=== PATIENT | female | born 1990 | race Caucasian/White ===

== ENCOUNTER 2020-05-13 06:00 | Inpatient (IN) | payer BC ==
[2020-05-13] MEDS ORDERED: TERBUTALINE 1 MG/ML VIAL SQ PRN (06:20)
[2020-05-13] MEDS ORDERED: LIDOCAINE 0.5% (PF) 5 MG/ML (50 ML SDV) SQ PRN (06:20)
[2020-05-13] MEDS ORDERED: OXYTOCIN 10 UNIT/ML 1 ML VIAL IM PRN (06:20)
[2020-05-13] MEDS ORDERED: CARBOPROST TROMETHAMINE 250 MCG/ML 1 ML AMP IM PRN (06:20)
[2020-05-13] MEDS ORDERED: METHYLERGONOVINE 0.2 MG/ML 1 ML AMP IM PRN (06:20)
[2020-05-13] MEDS ORDERED: LACTATED RINGERS 1,000 ML IV SCH (06:30)
[2020-05-13] MEDS ORDERED: OXYTOCIN 30 UNITS/500 ML NS 30 UNIT in SALINE 1 500ML.BAG IV SCH (06:30)
[2020-05-13 07:26] LABS: Anisocytosis Slight; Basophils % (A) 0 %; Eosinophils # (A) 0.1 k/uL (0-0.7); Eosinophils % (A) 1 %; HGB 12.9 gm/dL (11.4-16.0); Lymphocytes # (A) 1.8 k/uL (1.0-4.8); Lymphocytes % (A) 19 %; MCH 32.9 pg (25.0-35.0); MCHC 33.9 g/dL (31.0-37.0); Macrocytosis Slight; Mean Platelet Volume 8.8; Monocytes # (A) 0.6 k/uL (0-1.0); Monocytes % (A) 6 %; Neutrophils # (A) 6.9 k/uL (1.3-7.7); Neutrophils % (A) 72 %; Platelet Count 168 k/uL (150-450); RBC 3.92 m/uL (3.80-5.40); RDW 16.3 % (11.5-15.5); WBC 9.6 k/uL (3.8-10.6)
[2020-05-13] MEDS ORDERED: BUTORPHANOL 1 MG/ML 1 ML VIAL IV PRN (08:20)
--- NOTE | 2020-05-13 08:20 | P.HPOB ---
History of Present Illness H&P Date: 05/13/20 Chief Complaint: IUP at 39 0/7 weeks This is a 30-year-old that presents for elective induction of labor. Patient states with her prior pregnancies she was always induced postdates, her cervix is noted be favorable on last office visit therefore induction of labor w as offered and she accepted. Patient notes good movement denies contractions or bleeding. She has been receiving routine care which has been essentially uncomplicated. Patient was a transfer of care to myself around 27 weeks, patient had been receiving routine care with another provider. Routine fingerstick hemoglobin was done around 34 weeks, gestational anemia was noted and iron was encouraged. Patient has a known blood type of O-, rubella status immune, RPR nonreactive, hepatitis B surface antigen negative, HIV negative, she did pass her one-hour Glucola with a result of 108, group beta strep cultures were noted to be negative on 04/23. Review of Systems Constitutional: Denies chills, Denies fatigue, Denies fever Ears, nose, mouth and throat: Denies headache Cardiovascular: Reports leg edema Respiratory: Denies dyspnea Gastrointestinal: Reports nausea, Denies constipation, Denies diarrhea, Denies vomiting Genitourinary: Reports Past Medical History Past Medical History: No Reported History History of Any Multi-Drug Resistant Organisms: None Reported Past Surgical History: Orthopedic Surgery Past Anesthesia/Blood Transfusion Reactions: No Reported Reaction Past Psychological History: Anxiety Smoking Status: Former smoker Past Alcohol Use History: Occasional Past Drug Use History: None Reported - Past Family History Father Family Medical History: No Reported History Medications and Allergies Home Medications Medication Instructions Recorded Confirmed Type Pnv No.95/Ferrous Fum/Folic AC 1 tab PO DAILY 05/13/20 05/13/20 History [ Multivitamin Tablet] Allergies Allergy/AdvReac Type Severity Reaction Status Date / Time penicillin G Allergy Rash/Hives Verified 05/13/20 06:18 Exam Osteopathic Statement: *. No significant issues noted on an osteopathic structural exam other than those noted in the History and Physical/Consult. Vital Signs Temp Pulse Resp BP 05/13/20 07:20 96.4 F L 75 16 99/58 Intake and Output 05/12/20 05/13/20 05/13/20 22:59 06:59 14:59 Other: Weight 77.111 kg 77.111 kg Targeted physical exam was performed and the state in general this is a well-nourished well-developed female in no acute distress, breathing is noted to be nonlabored, heart has regular rate and rhythm, abdomen is gravid and appropriate for gestational age, on cervical exam she is noted to be 3/50/-2 amniotomy is performed and clear fluid was obtained. category 1 heart tones are noted, she is edilson irregularly. Results Result Diagrams: 05/13/20 06:15 Abnormal Lab Results - Last 24 Hours (Table) 05/13/20 Range/Units 06:15 RDW 16.3 H (11.5-15.5) % Assessment and Plan (1) Term Current Visit: Yes Status: Acute Code(s): Z34.90 - ENCNTR FOR SUPRVSN OF NORMAL , UNSP, UNSP TRIMESTER SNOMED Code(s): 03209643 Plan: This 30-year-old 012 at 39-0/7 weeks presents to labor and delivery for elective induction of labor. Patient has a history of 2 prior spontaneous vaginal deliveries all induced. Patient is admitted to labor and delivery and Pitocin induction of labor is begun per hospital protocol. Amniotomy was performed and clear fluid was obtained. Patient is offered Stadol versus ep idural for pain management throughout labor. Patient will consider. Anticipate spontaneous vaginal delivery later today.
[2020-05-13] MEDS ORDERED: PRENATAL VIT-IRON-FOLIC ACID 1 EACH CAP PO SCH (09:00)
[2020-05-13] MEDS ORDERED: fentaNYL (PF) 50 MCG/ML 5 ML AMP ONE (12:00)
[2020-05-13] MEDS ORDERED: SODIUM CHLORIDE 0.9% 100 ML BAG ONE (12:00)
[2020-05-13] MEDS ORDERED: ROPIVACAINE 5MG/ML 20ML VIAL ONE (12:00)
[2020-05-13] MEDS ORDERED: ZOLPIDEM 5 MG TAB PO PRN (14:13)
[2020-05-13] MEDS ORDERED: HYDROcodone/APAP 5-325MG 1 EACH TAB PO PRN (14:13)
[2020-05-13] MEDS ORDERED: diphenhydrAMINE 50 MG/ML 1 ML VIAL IVP PRN ×2 (14:13)
[2020-05-13] MEDS ORDERED: LANOLIN CREAM 5 GM TUBE TOPICAL PRN (14:13)
[2020-05-13] MEDS ORDERED: diphenhydrAMINE 25 MG CAP PO PRN (14:13)
[2020-05-13] MEDS ORDERED: WITCH HAZEL 1 EACH MED..PAD TOPICAL PRN (14:13)
[2020-05-13] MEDS ORDERED: SIMETHICONE 80 MG CHEWABLE PO PRN (14:13)
[2020-05-13] MEDS ORDERED: ACETAMINOPHEN TAB 325 MG TAB PO PRN (14:13)
[2020-05-13] MEDS ORDERED: diphenhydrAMINE 50 MG CAP PO PRN (14:13)
[2020-05-13] MEDS ORDERED: IBUPROFEN 600 MG TAB PO PRN (14:13)
[2020-05-13] MEDS ORDERED: BENZOCAINE/MENTHOL SPRAY 1 GM/SPRAY AEROSOL TOPICAL PRN (14:13)
[2020-05-13] MEDS ORDERED: HYDROCORTISONE 2.5% RECTAL CREAM 30 GM TUBE RECTAL PRN (14:13)
--- NOTE | 2020-05-13 14:13 | P.PROBDLV ---
Vaginal Delivery Note - . Vaginal Delivery Note: this pleasant 30-year-old 4 para 2011 at 39 0/7 weeks presents to labor and delivery for elective induction of labor. Patient was admitted to labor and delivery and Pitocin induction of labor was begun per hospital protocol. Patient underwent amniotomy once regular contractions were noted. Clear amniotic fluid was noted upon rupture of membranes. Patient progressed through labor eventually becoming uncomfortable and requesting epidural placement epidural was placed with anesthesia Department without difficulty. Patient progressed to complete began pushing and had a normal spontaneous vaginal delivery with a compound left hand at 1358, weight of 7 lbs. 0 oz. and Apgars of 8 and 9 at one and 5 minutes respectfully. After two-minute delayed the umbo cord was doubly clamped and cut and the was handed off to the maternal abdomen. The placenta was then delivered spontaneously intact with a three- vessel cord being noted. Prior to this cord blood was taken. On inspection the patient's vaginal vault no lacerations were noted. The bladder was then drained for approximately 50 mL of clear yellow urine. The uterus is noted to be firm and below the umbo like is at this time. Estimated blood loss was noted to be 200 mL. Patient and infant tolerated delivery well and are resting comfortably. All counts were noted be correct 2.
[2020-05-13] MEDS ORDERED: OXYTOCIN 20 UNITS/1000 ML NS 1,000 ML IV SCH (14:15)
[2020-05-13] MEDS ORDERED: SENNOSIDES-DOCUSATE SODIUM 1 EACH TAB PO SCH (20:00)
[2020-05-14 06:50] LABS: Anisocytosis Slight; Basophils % (A) 0 %; Eosinophils # (A) 0.1 k/uL (0-0.7); Eosinophils % (A) 1 %; HCT 34.3 % (34.0-46.0); HGB 11.8 gm/dL (11.4-16.0); Lymphocytes # (A) 2.3 k/uL (1.0-4.8); Lymphocytes % (A) 17 %; MCH 33.2 pg (25.0-35.0); MCHC 34.4 g/dL (31.0-37.0); MCV 96.6 fL (80.0-100.0); Macrocytosis Slight; Mean Platelet Volume 8.8; Monocytes # (A) 0.7 k/uL (0-1.0); Monocytes % (A) 5 %; Neutrophils # (A) 9.9 k/uL (1.3-7.7); Neutrophils % (A) 75 %; Platelet Count 176 k/uL (150-450); RBC 3.55 m/uL (3.80-5.40); RDW 16.4 % (11.5-15.5); WBC 13.2 k/uL (3.8-10.6)
--- NOTE | 2020-05-14 08:38 | P.DS ---
Providers Date of admission: 05/13/20 06:05 Expected date of discharge: 05/14/20 Attending physician: Flavia Sotelo Primary care physician: Stated None - Discharge Diagnosis(es) (1) Term Current Visit: Yes Status: Acute (2) Status post normal vaginal delivery Current Visit: Yes Status: Acute Hospital Course: This is a pleasant 30-year-old 4 para 2011 that presented to labor and delivery at 39-2/7 weeks for elective induction of labor. Patient had been receiving routine care but transfer to [place] at 27 weeks. care is been essentially uncomplicated. Patient was admitted and Pitocin induction of labor was begun. Patient underwent amniotomy once regular contractions were noted and clear fluid was obtained. Patient became uncomfortable and requested epidural placement. Patient progressed to complete began pushing and had a normal spontaneous vaginal delivery of a viable female infant at 1358, weight of 7 lbs. 0 oz. and Apgars of 9 and 9 at one and 5 minutes respect weight. Patient's post course has been essentially uneventful. On this day #1 she is ambulating and voiding without difficulty she is tolerating a regular diet without nausea or vomiting she is bottle feeding. She states her lochia is moderate. She would like discharge home at 24 hours Patient Condition at Discharge: Good Plan - Discharge Summary New Discharge Prescriptions: No Action Pnv No.95/Ferrous Fum/Folic AC [ Multivitamin Tablet] 1 tab PO DAILY Discharge Medication List Pnv No.95/Ferrous Fum/Folic AC [ Multivitamin Tablet] 1 tab PO DAILY 05/13/20 [History] Follow up Appointment(s)/Referral(s): Flavia Sotelo DO [Doctor of Osteopathic Medicine] - 4 Weeks Patient Instructions/Handouts: Vaginal Delivery (DC), Vaginal Delivery (GEN) Discharge Disposition: HOME SELF-CARE
[2020-05-15 09:17] VITALS: BP 118/78; PULSE 82; RESP 16; TEMP 97.4
== END 2020-05-14 14:30 | disposition home or self-care (01) | DRG 807 ==
LOC: 4FBP 06:05
PROVIDERS: ADMIT Obstetrics & Gynecology Obstetrics; ATTEND Obstetrics & Gynecology Obstetrics
PROC: 10E0XZZ Delivery of Products of Conception, External Approach (ICD-10-PCS; principal; 2020-05-13)
PROC: 3E033VJ Introduction of Other Hormone into Peripheral Vein, Percutaneous Approach (ICD-10-PCS; principal; 2020-05-13)
DX: O99.344 Other mental disorders complicating childbirth (principal); Z37.0 Single live birth; F41.9 Anxiety disorder, unspecified; Z3A.39 39 weeks gestation of pregnancy; Z87.891 Personal history of nicotine dependence
CPT/HCPCS: 85025; 86850; 86870; 86880; 86900; 86901

== ENCOUNTER → 2021-07-02 | Outpatient (CLI) | payer BC | END | disposition home or self-care (01) | LOC: LABWHC1 09:54 | PROVIDERS: ATTEND Obstetrics & Gynecology Obstetrics | DX: O20.0 Threatened abortion (principal); Z3A.00 Weeks of gestation of pregnancy not specified | CPT/HCPCS: 36415; 84702 ==

== ENCOUNTER → 2021-07-04 | Outpatient (CLI) | payer BC | END | disposition home or self-care (01) | LOC: LABMAIN 09:55 | PROVIDERS: ATTEND Obstetrics & Gynecology Obstetrics | DX: O20.0 Threatened abortion (principal); Z3A.00 Weeks of gestation of pregnancy not specified | CPT/HCPCS: 36415; 84702 ==

== ENCOUNTER 2022-02-15 06:13 | Inpatient (IN) | payer BC ==
[2022-02-15] MEDS ORDERED: TERBUTALINE 1 MG/ML VIAL SQ PRN (06:31)
[2022-02-15] MEDS ORDERED: CARBOPROST TROMETHAMINE 250 MCG/ML 1 ML AMP IM PRN (06:31)
[2022-02-15] MEDS ORDERED: OXYTOCIN 10 UNIT/ML 1 ML VIAL IM PRN (06:31)
[2022-02-15] MEDS ORDERED: LIDOCAINE 1% (PF) 10 MG/ML (30 ML SDV) SQ PRN (06:31)
[2022-02-15] MEDS ORDERED: METHYLERGONOVINE 0.2 MG/ML 1 ML AMP IM PRN (06:31)
[2022-02-15] MEDS: LACTATED RINGERS 1,000 ML IV SCH ×3 (06:40→12:00)
[2022-02-15] MEDS: OXYTOCIN 30 UNITS/500 ML NS 30 UNIT in SALINE 1 500ML.BAG IV SCH ×2 (06:45→18:48)
[2022-02-15 06:48] LABS: Basophils % (A) 0 %; Eosinophils # (A) 0.1 k/uL (0-0.7); Eosinophils % (A) 1 %; HCT 37.2 % (34.0-46.0); HGB 12.3 gm/dL (11.4-16.0); Lymphocytes % (A) 22 %; MCH 30.8 pg (25.0-35.0); MCHC 32.9 g/dL (31.0-37.0); MCV 93.4 fL (80.0-100.0); Mean Platelet Volume 9.1; Monocytes # (A) 0.6 k/uL (0-1.0); Monocytes % (A) 6 %; Neutrophils # (A) 6.5 k/uL (1.3-7.7); Neutrophils % (A) 69 %; Platelet Count 176 k/uL (150-450); Poikilocytosis Slight; RBC 3.98 m/uL (3.80-5.40); RDW 14.3 % (11.5-15.5); WBC 9.4 k/uL (3.8-10.6)
[2022-02-15] MEDS ORDERED: ROPIVACAINE 100 MG, fentaNYL (PF). 200 MCG in SODIUM CHLORIDE 0.9% 76 ML EPIDURAL ONE (12:57)
[2022-02-15] MEDS ORDERED: diphenhydrAMINE 50 MG/ML 1 ML VIAL IVP PRN ×2 (13:51)
[2022-02-15] MEDS ORDERED: BENZOCAINE/MENTHOL SPRAY 1 GM/SPRAY AEROSOL TOPICAL PRN (13:51)
[2022-02-15] MEDS ORDERED: LANOLIN CREAM 5 GM TUBE TOPICAL PRN (13:51)
[2022-02-15] MEDS ORDERED: diphenhydrAMINE 25 MG CAP PO PRN (13:51)
[2022-02-15] MEDS ORDERED: SIMETHICONE 80 MG CHEWABLE PO PRN (13:51)
[2022-02-15] MEDS ORDERED: ACETAMINOPHEN TAB 325 MG TAB PO PRN (13:51)
[2022-02-15] MEDS ORDERED: HYDROCORTISONE 2.5% RECTAL CREAM 30 GM TUBE RECTAL PRN (13:51)
[2022-02-15] MEDS ORDERED: ZOLPIDEM 5 MG TAB PO PRN (13:51)
[2022-02-15] MEDS ORDERED: diphenhydrAMINE 50 MG CAP PO PRN (13:51)
--- NOTE | 2022-02-15 13:51 | P.PROBDLV ---
Vaginal Delivery Note - . Vaginal Delivery Note: This is a 32-year-old 013 at 39-6/7 weeks that presents to labor and delivery for induction induction of labor. Patient has been receiving routine care which is an essentially uncomplicated. Patient was admitted to labor and delivery and Pitocin induction of labor was begun. Once regular contractions were appreciated amniotomy was performed. Clear fluid was obtained on amniotomy. Patient soon became uncomfortable direct request epidural placement. Anesthesia was notified and epidural was placed without difficulty. Patient progressed quickly to complete began pushing and had a normal spontaneous vaginal delivery of a viable female infant in occiput posterior presentation, at 1338, weight of 7 lbs. 9 oz. After two-minute delayed the umbilical cord was doubly clamped and cut and the was handed to the maternal abdomen. Cord blood was then taken. The placenta was then delivered spontaneously intact with a three-vessel cord being noted. The uterus is noted be firm and below the umbilicus. On section the patient's vaginal vault, 2 small lacerations were appreciated. These were instilled lidocaine and repaired with a [id number] suture of 3-0 Rapide. The bladder was then drained for 200 mL of clear yellow urine. All counts were correct 2 at the end of delivery. Patient and tolerated delivery well and are resting comfortably.
[2022-02-15] MEDS ORDERED: OXYTOCIN 30 UNITS/500 ML NS 30 UNIT in SALINE 1 500ML.BAG IV SCH (14:00)
[2022-02-15] MEDS: IBUPROFEN 600 MG TAB PO SCH ×2 (16:22→21:57)
[2022-02-15] MEDS ORDERED: miSOPROStoL 200 MCG TAB RECTAL STA (17:23)
--- NOTE | 2022-02-15 18:19 | P.PN ---
Progress Note - Text Progress Note Date: 02/15/22 32-year-old 014 status post normal spontaneous vaginal delivery today, called to evaluate patient as she was "not feeling well". Patient has had moderate lochia since delivery. Patient did sustain a small first-degree vaginal laceration at the vaginal opening. Vital signs remained stable, she is not tachycardic. She denies shortness of breath she denies nausea or vomiting. Vital signs are noted to be stable Physical exam In general this is a well-nourished well-developed female. She appears well. Uterus is noted to be at the umbilicus, on sterile vaginal exam scant clots are cleared from the vaginal vault/uterus. Patient did tolerate manual extraction well. Lacerations are noted to be intact and hemostatic. Cytotec 1000 g's placed rectally Assessment/plan Status post normal spontaneous vaginal delivery, hemorrhage Cytotec placed per protocol, 1000 g placed rectally without difficulty. Uterus is noted to be firm and below the umbilicus. Patient up to the bathroom without difficulty no dizziness no nausea or vomiting. Awaiting spontaneous void. CBC is pending
[2022-02-15 19:07] LABS: Basophils % (A) 0 %; Eosinophils % (A) 0 %; HCT 35.8 % (34.0-46.0); HGB 12.1 gm/dL (11.4-16.0); Lymphocytes # (A) 1.7 k/uL (1.0-4.8); Lymphocytes % (A) 11 %; MCHC 33.7 g/dL (31.0-37.0); MCV 94.9 fL (80.0-100.0); Mean Platelet Volume 9.4; Monocytes # (A) 0.5 k/uL (0-1.0); Monocytes % (A) 3 %; Neutrophils # (A) 12.9 k/uL (1.3-7.7); Neutrophils % (A) 84 %; Platelet Count 162 k/uL (150-450); Poikilocytosis Slight; RBC 3.78 m/uL (3.80-5.40); RDW 14.7 % (11.5-15.5); WBC 15.4 k/uL (3.8-10.6)
[2022-02-15] MEDS: SENNOSIDES-DOCUSATE SODIUM 1 EACH TAB PO SCH (21:57)
[2022-02-16 00:25] VITALS: RESP 16
[2022-02-16] MEDS: IBUPROFEN 600 MG TAB PO SCH ×3 (03:20→16:26)
[2022-02-16] MEDS: SENNOSIDES-DOCUSATE SODIUM 1 EACH TAB PO SCH (08:08)
[2022-02-16 08:51] VITALS: BP 120/69; PULSE 88; TEMP 98.3
--- NOTE | 2022-02-16 08:58 | P.DS ---
Providers Date of admission: 02/15/22 06:13 Expected date of discharge: 02/16/22 Attending physician: Flavia Sotelo Primary care physician: Stated None - Discharge Diagnosis(es) (1) Term Current Visit: No Status: Acute (2) hemorrhage Current Visit: Yes Status: Acute (3) Status post normal vaginal delivery Current Visit: No Status: Acute Hospital Course: This is a 32-year-old G5 now P4 014 that presented to labor and delivery yesterday for elective induction of labor. Patient was noted to be 39-6/7 weeks. Patient had been receiving routine care which had been essentially uncomplicated. For full details on this patient please see the dictated history and physical. Patient was admitted to labor and delivery and Pitocin induction of labor was begun per hospital protocol. Patient underwent amniotomy once regular contractions were appreciated, clear fluid was obtained. Patient did become uncomfortable and requested epidural placement. Anesthesia was notified and epidural was placed without difficulty. Patient quickly progressed to complete began pushing and had a normal spontaneous vaginal delivery of a viable female infant, weight of 7 pounds 9. Patient did sustain a first-degree vaginal laceration during delivery. Patient overall did well . She had a small episode of increased bleeding . Cytotec was placed rectally in addition to Methergine. Patient had a follow-up hemoglobin of 12. Patient is currently felt well overnight. This morning she is ambulating and voiding without difficulty. She states she is feeling much improved from last night. She denies concerns. She would like discharge home at 24 hours if infant is discharged along with her. Patient Condition at Discharge: Good Plan - Discharge Summary New Discharge Prescriptions: No Action Pnv No.95/Ferrous Fum/Folic AC [ Multivitamin Tablet] 1 tab PO DAILY Discharge Medication List Pnv No.95/Ferrous Fum/Folic AC [ Multivitamin Tablet] 1 tab PO DAILY 05/13/20 [History] Follow up Appointment(s)/Referral(s): Flavia Sotelo DO [Doctor of Osteopathic Medicine] - 1 Week Patient Instructions/Handouts: Vaginal Delivery (DC), Vaginal Delivery (GEN) Discharge Disposition: HOME SELF-CARE
--- NOTE | 2022-02-16 09:04 | P.HPOB ---
History of Present Illness H&P Date: 02/15/22 Chief Complaint: IUP at 39 weeks This is a 32-year-old 5 para 3013 at 39 weeks of gestation that presents to labor and delivery for elective induction of labor. Patient has been receiving routine care which has been essentially uncompensated. Today patient notes good movement denies contractions vaginal bleeding or loss of fluid. Review of Systems Constitutional: Denies fatigue, Denies fever Ears, nose, mouth and throat: Denies headache Cardiovascular: Reports leg edema Gastrointestinal: Denies constipation, Denies diarrhea, Denies nausea, Denies vomiting Genitourinary: Reports Past Medical History Past Medical History: No Reported History History of Any Multi-Drug Resistant Organisms: None Reported Past Surgical History: Orthopedic Surgery Past Anesthesia/Blood Transfusion Reactions: No Reported Reaction Past Psychological History: Anxiety Smoking Status: Never smoker Past Alcohol Use History: Occasional Past Drug Use History: None Reported - Past Family History Father Family Medical History: No Reported History Medications and Allergies Home Medications Medication Instructions Recorded Confirmed Type Pnv No.95/Ferrous Fum/Folic AC 1 tab PO DAILY 05/13/20 02/15/22 History [ Multivitamin Tablet] Allergies Allergy/AdvReac Type Severity Reaction Status Date / Time penicillin G Allergy Rash/Hives Verified 02/15/22 06:30 Exam Osteopathic Statement: *. No significant issues noted on an osteopathic structural exam other than those noted in the History and Physical/Consult. Vital Signs Temp Pulse Resp BP Pulse Ox 02/15/22 06:29 98.0 F 85 16 121/70 98 Intake and Output 02/14/22 02/15/22 02/15/22 22:59 06:59 14:59 Other: Weight 81.647 kg Targeted physical exam is performed in this date in general this a well- nourished well-developed female in no acute distress, breathing is noted to be nonlabored, heart has a regular rate and rhythm, abdomen is gravid and appropriate for gestational age, on cervical exam she is 4/50/-2 station amniotomy is performed and clear fluid was obtained, heart tones were noted be category 1 and she is edilson every 3 minutes. Results Result Diagrams: 02/15/22 06:30 Assessment and Plan (1) Term Current Visit: No Status: Acute Code(s): Z34.90 - ENCNTR FOR SUPRVSN OF N ORMAL , UNSP, UNSP TRIMESTER SNOMED Code(s): 86938987 Plan: 32-year-old 5 para 3013 at 39 weeks of gestation presents for elective induction of labor. Patient was admitted to labor and delivery and Pitocin induction of labor was begun per hospital protocol. Patient was offered epidural for pain control during labor which she states she would like. Anticipate spontaneous vaginal delivery later this afternoon.
== END 2022-02-16 15:45 | disposition home or self-care (01) | DRG 807 ==
LOC: 4FBP 06:13
PROVIDERS: ADMIT Obstetrics & Gynecology Obstetrics; ATTEND Obstetrics & Gynecology Obstetrics
PROC: 10E0XZZ Delivery of Products of Conception, External Approach (ICD-10-PCS; principal; 2022-02-15)
PROC: 0HQ9XZZ Repair Perineum Skin, External Approach (ICD-10-PCS; 2022-02-15)
PROC: 4A0HXCZ Measurement of Products of Conception, Cardiac Rate, External Approach (ICD-10-PCS; 2022-02-15)
PROC: 3E033VJ Introduction of Other Hormone into Peripheral Vein, Percutaneous Approach (ICD-10-PCS; 2022-02-15)
PROC: 10907ZC Drainage of Amniotic Fluid, Therapeutic from Products of Conception, Via Natural or Artificial Opening (ICD-10-PCS; 2022-02-15)
DX: O72.1 Other immediate postpartum hemorrhage (principal); Z37.0 Single live birth; F41.9 Anxiety disorder, unspecified; O70.0 First degree perineal laceration during delivery; O99.344 Other mental disorders complicating childbirth; Z3A.39 39 weeks gestation of pregnancy; Z88.0 Allergy status to penicillin
CPT/HCPCS: 85025; 86850; 86900; 86901